=== PATIENT | female | born 1980 | race Caucasian/White ===

== ENCOUNTER 2025-01-01 20:11 | Inpatient (IN) | payer OTHER ==
[~2025-01-01] VITALS: Ht 157.5 cm; Wt 100.0 kg
[~2025-01-01 20:11] MED LIST: ACET-2247 PO; BUPR-433 PO; FLUO-342 PO; OLAN2.5T78 PO; PREN-217 PO
[2025-01-01 21:12] LABS: APPEARANCE,URINE CLEAR (CLEAR); COLOR,URINE LIGHT YELLOW (YELLOW); GLUCOSE, URINE (UA) NEGATIVE (NEGATIVE); KETONES,URINE =>150 mg/dL (NEGATIVE); LEUKOCYTE ESTERASE ,URINE NEGATIVE (NEGATIVE); NITRATE,URINE NEGATIVE (NEGATIVE); OCCULT BLOOD,URINE SMALL (NEGATIVE); PROTEIN,URINE TRACE mg/dL (NEGATIVE); SPECIFIC GRAVITIY, URINE 1.022 (1.003-1.030); UROBILINOGEN,URINE <=1.0 mg/dL (<=1.0)
[2025-01-01 21:17] LABS: BILIRUBIN,URINE SMALL (NEGATIVE)
[2025-01-01 21:19] LABS: ALCOHOL, URINE DRUG SCREEN NEGATIVE (NEGATIVE); AMPHET/METH SCREEN,URINE POSITIVE (NEGATIVE); BARBITURATE SCREEN, URINE NEGATIVE (NEGATIVE); BENZODIAZEPINES SCREEN,URINE NEGATIVE (NEGATIVE); CANNABINOID SCREEN,URINE NEGATIVE (NEGATIVE); COCAINE SCREEN,URINE NEGATIVE (NEGATIVE); METHADONE SCREEN, URINE NEGATIVE (NEGATIVE); OPIATE SCREEN,URINE NEGATIVE (NEGATIVE); PHENCYCLIDINE SCREEN,URINE NEGATIVE (NEGATIVE)
[2025-01-01 21:21] LABS: COVID AG,FIA SOURCE NASAL SWAB
[2025-01-01 21:29] LABS: BACTERIA,URINE Few /HPF (None Seen); YEAST,URINE Few /HPF (None Seen)
[2025-01-01 21:38] LABS: SARS-COV2 (COVID) ANTIGEN,FIA Negative (Negative)
[2025-01-01 23:27] LABS: BASOPHILS % (AUTO) 0.5 % (0.0-2.0); EOSINOPHILS % (AUTO) 1.1 % (1.0-6.0); HEMATOCRIT 42.2 % (36-46); HEMOGLOBIN 13.7 g/dL (12.0-16.0); LYMPHOCYTES # (AUTO) 2.1 K/uL (1.0-4.8); LYMPHOCYTES % (AUTO) 22.9 % (22.0-44.0); MEAN CORPUSCULAR HEMOGLOBIN 28.4 pg (26.0-34.0); MEAN CORPUSCULAR HGB CONC 32.3 G/dL (31.0-37.0); MEAN CORPUSCULAR VOLUME 88 fL (80-100); MONOCYTES # (AUTO) 0.4 K/uL (0.1-1.0); MONOCYTES % (AUTO) 4.6 % (2.0-9.0); NEUTROPHILS # (AUTO) 6.5 K/uL (1.8-7.7); NEUTROPHILS % (AUTO) 70.9 % (40.0-70.0); PLATELET COUNT (AUTO) 256 K/uL (150-450); RED BLOOD CELL COUNT(AUTO) 4.81 MIL/uL (4.00-5.20); RED CELL DISTRIBUTION WIDTH 15.2 % (11.5-14.5); WHITE BLOOD COUNT (AUTO) 9.2 K/uL (4.5-11.0)
[2025-01-01 23:34] LABS: ANION GAP 9 mmol/L (8-16); CALCIUM, TOTAL 9.2 mg/dL (8.8-10.5); CARBON DIOXIDE 26 mmol/L (22-29); CHLORIDE 102 mmol/L (98-107); CREATININE 0.93 mg/dL (0.60-1.30); GLOMERULAR FILTR. RATE CALC > 60 mL/min (>60); GLUCOSE,RANDOM 67 mg/dL (70-110); POTASSIUM 4.4 mmol/L (3.5-5.1); SODIUM SERUM 137 mmol/L (136-145); UREA NITROGEN, BLOOD 15 mg/dL (7-18)
[2025-01-02] MEDS: HEPARIN SODIUM,PORCINE 5,000 UNITS/ML VIAL SQ SCH
[2025-01-02] MEDS ORDERED: ONDANSETRON HCL 4 MG/2 ML VIAL IVP PRN
[2025-01-02] MEDS ORDERED: HydrOXYzine HCL 25 MG TABLET PO PRN (00:45)
[2025-01-02] MEDS: DEXTROSE 50%-WATER 25 GM/50 ML SYRINGE IVP ONE (01:15)
[2025-01-02] MEDS: CLINDAMYCIN 300 MG/D5% WATER 50 ML IV SCH (01:16)
[2025-01-02] MEDS: DEXTROSE 5%-LACTATED RINGERS 1,000 ML IV ONE (01:17)
[2025-01-02] MEDS: HALOPERIDOL LACTATE 5 MG/ML VIAL IM ONE (04:00)
[2025-01-02 09:46] VITALS: BP 97/50; PULSE 82; RESP 17; TEMP 97.5; O2SAT 99
[2025-01-02] MEDS: DOCUSATE SODIUM 100 MG CAPSULE PO SCH (09:51)
[2025-01-02] MEDS ORDERED: INFLUENZA VIRUS VACCINE TVS (6MO+) 2024-25/PF 45 MCG/0.5 ML SYRINGE IM. ONE (13:15)
[2025-01-02] MEDS: KETOROLAC TROMETHAMINE 15 MG/ML VIAL IVP PRN (18:06)
[2025-01-02 19:23] VITALS: BP 79/41; PULSE 78; RESP 16; TEMP 98.4; O2SAT 95
[2025-01-02] MEDS: RINGERS SOLUTION,LACTATED 1,000 ML IV ONE (20:56)
[2025-01-02] MEDS ORDERED: LevETIRAcetam 2,000 MG in DEXTROSE 5%-WATER 250 ML IV ONE (21:00)
[2025-01-02 22:07] VITALS: BP 99/41; PULSE 76; RESP 18; O2SAT 99
[2025-01-03] MEDS ORDERED: SODIUM CHLORIDE 0.9% 1,000 ML ONE (00:03)
[2025-01-03] MEDS: ACETAMINOPHEN 325 MG TABLET PO PRN (01:57)
[2025-01-03 02:05] VITALS: BP 112/74; PULSE 81; RESP 16; O2SAT 97
[2025-01-03 03:00] VITALS: BP 103/68; PULSE 69; RESP 18; TEMP 97.9; O2SAT 99
[2025-01-03] MEDS: CLINDAMYCIN HCL 300 MG CAPSULE PO SCH (08:36)
[2025-01-04 00:40] VITALS: BP 103/64; PULSE 79; RESP 18; TEMP 98.2; O2SAT 96
[2025-01-04] MEDS ORDERED: BACI28.410 TP (12:17)
[2025-01-04] MEDS ORDERED: CLIN300C58 PO (12:17)
== END 2025-01-04 20:31 | DRG 603 ==
LOC: EMS 20:11 → EDH 01-02 00:37 → 6N 01-02 08:37 → AHU 01-02 15:26 → 6N 01-02 15:33
PROVIDERS: ADMIT Internal Medicine; ATTEND Internal Medicine
PROC: GZ56ZZZ Individual Psychotherapy, Supportive (ICD-10-PCS; principal; 2025-01-03)
DX: L03.115 Cellulitis of right lower limb (principal); F33.1 Major depressive disorder, recurrent, moderate; F11.93 Opioid use, unspecified with withdrawal; Z68.41 Body mass index [BMI] 40.0-44.9, adult; R62.7 Adult failure to thrive; E16.2 Hypoglycemia, unspecified; Z20.822 Contact with and (suspected) exposure to COVID-19; T63.391A Toxic effect of venom of other spider, accidental (unintentional), initial encounter; L02.415 Cutaneous abscess of right lower limb; E88.89 Other specified metabolic disorders; R31.9 Hematuria, unspecified; T73.0XXA Starvation, initial encounter; F15.10 Other stimulant abuse, uncomplicated; X58.XXXA Exposure to other specified factors, initial encounter; Z88.0 Allergy status to penicillin; Z91.199 Patient's noncompliance with other medical treatment and regimen due to unspecified reason; Y92.89 Other specified places as the place of occurrence of the external cause; Z79.899 Other long term (current) drug therapy
CPT/HCPCS: 80048; 80307; 81001; 85025; 96360; 96372; 99285; J0712; J1644; J1885; J3490; J7030; J7060; J7120; 36415-L1; 36415-TC